=== PATIENT | female | born 1940 | race Caucasian/White ===

== ENCOUNTER → 2016-06-14 | Outpatient (CLI) | payer OTHER, MEDICARE ==
--- NOTE | ~2016-06-14 | CR173 ---
[facility] A Service [facility] RADIOLOGY TEXT RESULTS PATIENT: LORETA ANTONIO LOCATION: [facility] : 38 UNIT #: [id number] AGE: [address]: FEDE MYLES MD SEX: F ORDER DR: [id number] [place], [place] [address] [id number] O MR#: [id number] Acc #: [id number] NAME: LORETA ANTONIO : 1940 SEX: F STUDY DATE/TIME: 06/14/2016 11:29 UNIT: [facility] ROOM: STUDY DESCRIPTION: CR Knee 3 Views Rt Attending Physician: Fede Myles M.D. Ordering Physician: Fede Myles M.D. Primary Care Physician: Fede Myles M.D. MEDICAL IMAGING REPORT This report is preliminary unless electronic signature is present EXAM Right knee 3 views 06/14/2016 INDICATIONS 76-year-old female with right knee pain, symptoms 2 months. No known injury. TECHNIQUE 3 views of the right knee were performed COMPARISON No comparisons FINDINGS There is tricompartmental degenerative change with joint space narrowing most severe in the medial compartment. There is osteophytosis also most severe medially. No acute fracture. No joint effusion. Faint atherosclerotic calcifications are present. IMPRESSION Tricompartmental degenerative changes but no acute fracture. Dictated by... Migel Farias M.D. THIS IS AN ELECTRONICALLY VERIFIED REPORT Migel Farias M.D. at 06/14/2016 7:17 PM CINDYY/courtney TD: 06/14/2016 17:38 JOB #: [id number] MEDICAL IMAGING REPORT [facility] A Service [facility] RADIOLOGY TEXT RESULTS PATIENT: LORETA ANTONIO LOCATION: [facility] : 38 UNIT #: [id number] AGE: [address]: FEDE MYLES MD SEX: F ORDER DR: Page 1 of 1 COPY
== END | disposition home or self-care (01) ==
LOC: CRAD 10:58
DX: M25.561 Pain in right knee (principal)
CPT/HCPCS: 73562

== ENCOUNTER 2016-07-17 13:32 | Emergency (ER) | payer OTHER ==
--- NOTE | ~2016-07-17 | CR72 ---
[facility]. [facility] A Service of [facility] RADIOLOGY TEXT RESULTS PATIENT: LORETA ANTONIO LOCATION: [facility] : 38 UNIT #: [id number] AGE: [address]: Min Carney MD SEX: F ORDER DR: [id number] [facility] [address] [place], [place] [address] [id number] E MR#: [id number] Acc #: [id number] NAME: LORETA ANTONIO : 1940 SEX: F STUDY DATE/TIME: 07/17/2016 15:36 UNIT: [facility] ROOM: STUDY DESCRIPTION: CR Chest Single View Portable Attending Physician: Min Carney M.D. Ordering Physician: Min Carney M.D. Primary Care Physician: Dewey Myles M.D. MEDICAL IMAGING REPORT This report is preliminary unless electronic signature is present EXAM Portable chest, 07/17/2016 HISTORY Benign essential hypertension. Acute onset of chest congestion yesterday and bilateral lower extremity edema. FINDINGS A single AP portable view of the chest shows both lungs to be clear. The heart is normal in size. The mediastinal contour is normal. No significant bone abnormalities are seen. IMPRESSION Normal portable chest. Dictated by... Jim Hinton M.D. THIS IS AN ELECTRONICALLY VERIFIED REPORT Jim Hinton M.D. at 07/18/2016 10:35 AM MARISOL/aliyah TD: 07/17/2016 21:57 JOB #: [id number] MEDICAL IMAGING REPORT Page 1 of 1 COPY
--- NOTE | ~2016-07-17 | EKG ---
PATIENT: LORETA ANTONIO UNIT #: [id number] Ventricular Rate: 85 BPM Atrial Rate: 85 BPM P-R Interval: 158 ms QRS Duration: 70 ms Q-T Interval: 390 ms QTC Calculation(Bezet): 464 ms P [place]: 72 degrees Calculated R [place]: 4 degrees Calculated T [place]: 16 degrees Diagnosis Line: Normal sinus rhythm Diagnosis Line: Nonspecific T wave abnormality Diagnosis Line: Abnormal ECG Diagnosis Line: No previous ECGs available Diagnosis Line: Confirmed by DRE KHAN MD ([id number]) on Diagnosis Line: 07/18/2016 3:17:36 PM INTERPRETING MD: ERIN JOLLY
[2016-07-17 14:35] LABS: BASOPHIL% 0.3 % (0-2.5); EOSINOPHIL% 0.1 % (0.0-7.0); HEMATOCRIT 37.6 % (35.0-45.0); HEMOGLOBIN 11.9 gm/dL (12.0-16.0); LYMPHOCYTE# 0.6 X10e3 (1.0-3.5); LYMPHOCYTE% 8.6 % (17.0-45.0); MEAN CORPUSCULAR HEMOGLOBIN 26.2 PG (28-34); MEAN CORPUSCULAR HGB CONC 31.6 g/dL (30-36); MEAN PLATELET VOLUME 7.8 FL (6.5-11.5); MONOCYTE# 0.4 X10e3 (0-1.0); MONOCYTE% 4.8 % (3.0-12.0); NEUTROPHIL# 6.3 X10e3 (1.5-7.1); NEUTROPHIL% 86.2 % (40-75); PLATELET COUNT 204 X10e3 (140-420); RED BLOOD COUNT 4.53 X10e (3.90-5.30); RED CELL DISTRIBUTION WIDTH 14.8 % (11.0-15.5); WHITE BLOOD COUNT 7.3 X10e3 (4.0-10.5)
[2016-07-17 14:38] LABS: DIFF IND NO
[2016-07-17 14:41] LABS: URINE SOURCE CLEAN CATCH
[2016-07-17 14:46] LABS: URINE APPEARANCE CLEAR; URINE BILIRUBIN NEG (NEG); URINE BLOOD NEG (NEG); URINE COLOR YELLOW; URINE GLUCOSE NEG (NEG); URINE KETONE NEG (NEG); URINE LEUKOCYTE ESTERASE 2+ (NEG); URINE NITRATE NEG (NEG); URINE PH 6.5 (5-8); URINE PROTEIN NEG (NEG); URINE SPECIFIC GRAVITY 1.017 (1.003-1.035)
[2016-07-17 14:47] LABS: URINE BACTERIA AUWI NEG (NEGATIVE); URINE SQUAMOUS EPITHELIAL CELL FEW /[HPF]
[2016-07-17 14:51] LABS: CULTURE INDICATED? NO; UWBCS1 AUWI 0-2 (0-5)
[2016-07-17 14:54] LABS: ALBUMIN SERUM 3.8 g/dL (3.5-5.0); ALKALINE PHOSPHATASE 51 U/L (32-92); ALT (SGPT) 14 U/L (10-40); AST (SGOT) 17 U/L (10-42); BILIRUBIN, DIRECT <0.1 mg/dL (0.0-0.2); BILIRUBIN,INDIRECT 0.4 mg/dL (0.0-0.9); BILIRUBIN,TOTAL 0.5 mg/dL (0.2-2.0); BLOOD UREA NITROGEN 19 mg/dL (9-23); BUN/CREATININE RATIO 31.66; CARBON DIOXIDE 27 mmol/L (22-31); CHLORIDE 106 mmol/L (100-111); CREATININE SERUM 0.6 mg/dL (0.6-1.4); GLOM FILT RATE Estimated 87.9 mL/min (>60); GLUCOSE FASTING 104 mg/dL (70-110); POTASSIUM 4.3 mmol/L (3.5-5.1); PROTEIN TOTAL SERUM 7.4 g/dL (6.0-8.3); SODIUM 139 mmol/L (135-145)
== END 2016-07-17 16:24 | disposition home or self-care (01) ==
LOC: CED 13:32
PROVIDERS: Emergency Medicine
DX: E11.649 Type 2 diabetes mellitus with hypoglycemia without coma (principal); R60.0 Localized edema; I10 Essential (primary) hypertension; F41.9 Anxiety disorder, unspecified; F32.9 Major depressive disorder, single episode, unspecified; Z90.710 Acquired absence of both cervix and uterus
CPT/HCPCS: 36415; 71010; 80048; 80076; 81003; 82947; 83880; 85025; 93005; 99283